=== PATIENT | male | born 1940 | race Caucasian/White ===

== ENCOUNTER 2024-04-13 14:55 | Outpatient (CLI) | payer OTHER, SELFPAY ==
--- NOTE | ~2024-04-13 | XR_ITS ---
HISTORY: M79.601 - Pain in right arm COMPARISON: None TECHNIQUE: 2 views of the right elbow were performed FINDINGS: No acute or subacute fracture is identified. No elevation of the anterior or posterior fat pads are identified to suggest a supracondylar fracture . Overlying soft tissues are unremarkable. Bone mineralization is age-appropriate. IMPRESSION: No acute fracture Reviewed, dictated and finalized at location A. 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
== END 2024-04-13 14:56 | disposition home or self-care (01) ==
PROVIDERS: Visit Provider Orthopaedic Surgery
DX: S46.211A Strain of muscle, fascia and tendon of other parts of biceps, right arm, initial encounter (principal); X58.XXXA Exposure to other specified factors, initial encounter
CPT/HCPCS: 73070